=== PATIENT | male | born 1975 | race Caucasian/White ===

== ENCOUNTER 2016-04-05 14:37 | Emergency (ER) | payer OTHER ==
--- NOTE | 2016-04-05 15:41 | ED ---
General Adult HPI - General Chief complaint: Skin/Abscess/Foreign Body Stated complaint: Lump under Ear Time Seen by Provider: 04/05/16 15:32 Source: patient, RN notes reviewed Mode of arrival: ambulatory Limitations: no limitations - History of Present Illness Initial comments: This is a 40-year-old male presents with swelling just below the left ear that started 1 week ago. Patient states he noticed some tenderness behind the left ear one week ago but now has increased swelling and increased pain to this area. Patient denies sore throat, trouble swallowing, headache, fever or chills. Patient does admit that the swelling is causing left ear pain and some pain to the left jaw. Patient states he has a history of "fatty tumors" removed from his back and was concerned that this could be another one. Patient was also concerned that it could have been a lymph node as he had an upper respiratory infection over the last week. Patient has no pain with chewing or eating. Patient denies any complaints of dry mouth. Patient denies any recent shortness breath, chest pain, abdominal pain, nausea/vomiting/ diarrhea, back pain, numbness, tingling, hematuria or visual changes, or any other complaints. - Related Data Previous Rx's Medication Instructions Recorded Amoxicillin/Potassium Clav 1 each PO Q12HR #20 tab 03/17/15 [Augmentin 875-125 Tablet] Hydrocodone/Acetaminophen [Ronald 1 each PO Q6HR PRN #10 tab 03/17/15 5-325] Ibuprofen [Motrin] 600 mg PO Q6HR PRN #40 day 03/17/15 Cyclobenzaprine [Flexeril] 10 mg PO TID PRN #20 tablet 03/24/15 HYDROcodone/APAP 5-325MG [Ronald 5] 1 each PO Q4HR PRN #10 tab 03/24/15 Cephalexin [Keflex] 500 mg PO Q12HR 7 Days 04/05/16 Allergies Allergy/AdvReac Type Severity Reaction Status Date / Time No Known Allergies Allergy Verified 04/05/16 14:45 Review of Systems ROS Statement: Those systems with pertinent positive or pertinent negative responses have been documented in the HPI. ROS Other: All systems not noted in ROS Statement are negative. Past Medical History Past Medical History: No Reported History History of Any Multi-Drug Resistant Organisms: None Reported Additional Past Surgical History / Comment(s): cyst removal Past Psychological History: No Psychological Hx Reported Smoking Status: Current some day smoker Past Alcohol Use History: None Reported Past Drug Use History: Marijuana General Exam - General Exam Comments Initial Comments: General: The patient is awake and alert, in no distress, and does not appear acutely ill. Eye: Pupils are equal, round and reactive to light, extra-ocular movements are intact. No nystagmus. There is normal conjunctiva bilaterally. No signs of icterus. Ears: There is some swelling just below the lobe of the left ear that is tender to palpation and approximately 3 cm in diameter. TMs pink and pearly with intact cone of light bilaterally. Normal external ear canals Nose: Nasal turbinates pink and moist Mouth and throat: There are moist mucous membranes and no oral lesions. Neck: The neck is supple, there is no tenderness or JVD. Cardiovascular: There is a regular rate and rhythm. No murmur, rub or gallop is appreciated. Respiratory: Lungs are clear to auscultation, respirations are non-labored, breath sounds are equal. No wheezes, stridor, rales, or rhonchi. Musculoskeletal: Normal ROM, no tenderness. Strength 5/5. Sensation intact. Radial pulses equal bilaterally 2+. Neurological: A&O x 3. CN II-XII intact, There are no obvious motor or sensory deficits. Coordination appears grossly intact. Speech is normal. Skin: There is some swelling just below the lobe of the left ear approximately 1.5 cm in diameter, there is no erythema, warmth or sign of drainage. Skin is warm and dry and no rashes or lesions are noted. Psychiatric: Cooperative, appropriate mood & affect, normal judgment. Limitations: no limitations Course Vital Signs 04/05/16 14:43 Temperature 97.5 F L Pulse Rate 78 Respiratory 20 Rate Blood Pressure 127/72 O2 Sat by Pulse 98 Oximetry Medical Decision Making - Medical Decision Making This is a 32-year-old male presents with swelling just below the left ear times one week. On physical exam patient is afebrile in the EC. There is some swelling just below the lobe of the left ear that is tender to palpation and approximately 1.5 cm in diameter. There is no erythema, warmth or signs of drainage. TMs pink and pearly with intact cone of light bilaterally. Normal external ear canals. This does not appear to be an abscess. Discussed that patient would put on a course of antibiotics for lymphadenitis. Discussed Tylenol and Motrin and warm compresses for pain. I discussed the possibility for parotid gland stone with the patient the patient has no pain with eating or complaints of dry mouth. I discussed that patient can try hard candies as well to see if this improves symptoms. Patient has no history of parotid gland stones. I discussed return parameters. Discussed that patient should follow up with PCP in one to 2 days or return to the EC for any worsening symptoms or for any further concerns. Patient was receptive to this plan and patient will be discharged home. I discussed this case with attending physician Dr. Nielsen who agrees the plan as stated above. Disposition Clinical Impression: Lymphadenitis Disposition: HOME SELF-CARE Condition: Good Instructions: Adenitis (ED) Additional Instructions: Please finish entire course of antibiotics. Please use warm compresses to the area. Tylenol/Motrin for the pain. Please follow-up with family doctor in the next 2 days of symptoms have not improved. Please return to emergency room if the symptoms increase or worsen or for any other concerns. Prescriptions: Cephalexin [Keflex] 500 mg PO Q12HR 7 Days Referrals: Larry Grossman MD [Primary Care Provider] - 1-2 days Time of Disposition: 16:04
[2016-04-05 16:14] VITALS: BP 118/84; PULSE 82; RESP 17; TEMP 97.3
== END 2016-04-05 16:13 | disposition home or self-care (01) ==
LOC: EC 14:37
DX: I88.9 Nonspecific lymphadenitis, unspecified (principal); F17.200 Nicotine dependence, unspecified, uncomplicated

== ENCOUNTER → 2017-05-23 | Outpatient (CLI) | payer BC ==
--- NOTE | 2017-05-23 14:55 | XR ---
Left shoulder HISTORY: Chronic shoulder pain 3 views of the left shoulder Bone mineralization, joint spaces and alignment are maintained. Left lung apex as visualized is oriana l. IMPRESSION: Normal left shoulder
== END | disposition home or self-care (01) ==
LOC: RADXRMAIN 13:06
PROVIDERS: ATTEND Family Medicine
DX: M25.512 Pain in left shoulder (principal)

== ENCOUNTER → 2017-08-31 | Outpatient (CLI) | payer BC ==
--- NOTE | 2017-09-05 08:31 | XR ---
EXAMINATION TYPE: XR ankle complete LT DATE OF EXAM: 09/04/2017 COMPARISON: NONE HISTORY: Pain FINDINGS: Three views of the ankle demonstrate the ankle mortise to be intact and symmetric. The joint spaces are preserved. The osseous structures are intact. IMPRESSION: 1. No definite acute fracture or dislocation, if symptoms persist follow-up study in 7 to 10 days wou ld be suggested.
--- NOTE | 2017-09-05 09:17 | XR ---
EXAM TYPE: LUMBAR SPINE X RAY SERIES COMPARISON: NONE HISTORY: Back pain TECHNIQUE: 4 views are submitted. FINDINGS: Alignment is anatomic. The pedicles are intact. The transverse processes are intact. There is no s pondylolysis or spondylolisthesis. Spina bifida occulta lumbosacral junction. Mild facet arthropathy L5-S1. Mild to moderate degenerative disc disease L3-4, L4-5, and L5-S1. IMPRESSION: 1. Multilevel degenerative disc disease. Consider follow-up MRI.
== END | disposition home or self-care (01) ==
LOC: RADXRMAIN 07:55
PROVIDERS: ATTEND Family Medicine
DX: M51.36 Other intervertebral disc degeneration, lumbar region (principal); M25.572 Pain in left ankle and joints of left foot
CPT/HCPCS: 72110

== ENCOUNTER 2021-11-20 13:22 | Emergency (ER) | payer BC ==
[2021-11-20 13:39] VITALS: BP 164/92; PULSE 90; RESP 16; TEMP 98.3
[2021-11-20] MEDS ORDERED: LIDOCAINE 1% INJ 10MG/ML (20 ML MDV) SQ ONE (15:51)
[2021-11-20] MEDS ORDERED: DIPH,PERTUS(ACELL)TETVAC-LF 0.5 ML VIAL IM ONE (15:52)
--- NOTE | 2021-11-20 16:17 | XR ---
EXAMINATION TYPE: XR hand complete RT DATE OF EXAM: 11/20/2021 4:05 PM INDICATION: Patient age:Male; 46 years old; Reason for study: pain, laceration; PHH. COMPARISON: None TECHNIQUE: Frontal, lateral and oblique views of the right hand were obtained. FINDINGS: Normal alignment of the visualized joints. No acute osseous pathology is identified. No e vidence of soft tissue swelling. IMPRESSION: No acute osseous pathology.
--- NOTE | 2021-11-20 17:07 | ED ---
General Adult HPI - General Chief complaint: Wound/Laceration Stated complaint: laceration right hand Time Seen by Provider: 11/20/21 15:15 Source: patient Mode of arrival: ambulatory Limitations: no limitations - History of Present Illness Initial comments: 46-year-old male presents to the emergency department with laceration to his right hand. States he was attempting to seat a tire when the strap came loose and hit him in his right palm. He is right-hand dominant. No use of blood thinners. Continues to have full normal range of motion. Cleansed the wound with peroxide and when he realized the depth of the laceration came into the emergency room for repair. He is unsure of his last tetanus vaccine. No wrist pain. No other alleviating, precipitating or modifying factors - Related Data Previous Rx's Medication Instructions Recorded Amoxicillin/Potassium Clav 1 each PO Q12HR #20 tab 03/17/15 [Augmentin 875-125 Tablet] Hydrocodone/Acetaminophen [[place] 1 each PO Q6HR PRN #10 tab 03/17/15 5-325] Ibuprofen [Motrin] 600 mg PO Q6HR PRN #40 day 03/17/15 Cyclobenzaprine [Flexeril] 10 mg PO TID PRN #20 tablet 03/24/15 HYDROcodone/APAP 5-325MG [[place] 5] 1 each PO Q4HR PRN #10 tab 03/24/15 Cephalexin [Keflex] 500 mg PO Q12HR 7 Days cap 04/05/16 Allergies Allergy/AdvReac Type Severity Reaction Status Date / Time No Known Allergies Allergy Verified 11/20/21 13:38 Review of Systems ROS Statement: Those systems with pertinent positive or pertinent negative responses have been documented in the HPI. ROS Other: All systems not noted in ROS Statement are negative. Past Medical History Past Medical History: No Reported History History of Any Multi-Drug Resistant Organisms: None Reported Additional Past Surgical History / Comment(s): cyst removal Past Psychological History: No Psychological Hx Reported Smoking Status: Never smoker Past Alcohol Use History: None Reported Past Drug Use History: Marijuana General Exam Limitations: no limitations General appearance: alert, in no apparent distress Extremities exam: Present: other (3 x 1 cm laceration to the right medial home. Some exposed subcutaneous fat. Mild oozing. No tendon injury. No vascular injury. No underlying bony fracture. No retained foreign bodies. 2+ radial and ulnar pulses. Normal cap refill) Course Vital Signs 11/20/21 13:38 Temperature 98.3 F Pulse Rate 90 Respiratory 16 Rate Blood Pressure 164/92 O2 Sat by Pulse 98 Oximetry Procedures - Laceration Laceration #1 Consent Obtained: verbal consent Indication: laceration Site: hand Size (cm): 3 Description: linear Depth: simple, single layer Anesthetic Used: lidocaine 1% Anesthesia Technique: local infiltration Amount (mls): 8 Pre-repair: wound explored, irrigated extensively, deep structures intact, wound margins revised Type of Sutures: nylon Size of Sutures: 4-0 Number of Sutures: 5 Technique: simple, interrupted Patient Tolerated Procedure: well, no complications Medical Decision Making - Medical Decision Making Upon arrival patient was placed into room 21. Thorough history and physical exam was performed. Patient does go for x-ray which does not demonstrate any underlying fractures. Tetanus is updated. Patient's wound was cleansed and then repaired using 5, 4-0 nylon interrupted sutures. There was good approximation of the tissue. Patient remained neurovascularly intact. He'll be discharged home and instructed to have his sutures removed in 7-10 days. Should be reevaluated by his primary care doctor in 2-4. May return here for suture removal. Return should he have any new or worsening symptoms including increasing redness, pustular drainage. Patient was agreeable to this and he was discharged home in stable condition Disposition Clinical Impression: Hand laceration, Crush injury Disposition: HOME SELF-CARE Condition: Stable Instructions (If sedation given, give patient instructions): Diphtheria/Pertussis/Tetanus Vaccine (By injection), Laceration (ED) Additional Instructions: Your stitches need to be removed in 7-10 days. Return should you have any redness or pustular drainage. Alternate taking Motrin and Tylenol for pain. Is patient prescribed a controlled substance at d/c from ED?: No Referrals: Larry Grossman MD [Primary Care Provider] - 1-2 days Time of Disposition: 17:07
== END 2021-11-20 17:19 | disposition home or self-care (01) ==
LOC: EC 13:22
DX: S61.411A Laceration without foreign body of right hand, initial encounter (principal); Z23 Encounter for immunization; W22.8XXA Striking against or struck by other objects, initial encounter
CPT/HCPCS: 73130; 90715; 90471; 12002; 99283; J2001

== ENCOUNTER → 2023-12-12 | Outpatient (CLI) | payer BC ==
--- NOTE | 2023-12-13 19:21 | MR ---
EXAMINATION TYPE: MR lumbar spine wo/w con DATE OF EXAM: 12/12/2023 7:39 PM COMPARISON: None. CLINICAL INDICATION: Male, 48 years old with history of M51.36 LUMBAR DISC DEGENERATION, low back hector n that radiates down both hips and legs, more on left side TECHNIQUE: Multiplanar, multisequence images of the lumbar spine were acquired. IV Contrast: 8 mL Gadobutrol (None, if empty) FINDINGS: Cord ends at the L1-L2 level. L5-S1: Broad based disc bulge is present with anterior thecal sac contact. No thecal sac compression or nerve root displacement is evident. No spinal canal stenosis is present, neural foramen are patent . L4-L5: There is narrowing of the disc height at this level. No spinal canal stenosis or neural forami nal stenosis is evident. Mild anterior thecal sac contact is present from disc bulging. Subligamentou s disc extension posterior to the L5 level may be present. Ligamentum flavum laxity is present. Keyonna elate for right L5 radicular symptoms. L3-L4: There is disc space narrowing. Some right paracentral subligamentous disc herniation is eviden t with disc posterior to the L4 vertebral body. This has mild anterior thecal sac compression. Correl ate for radicular symptoms. L2-L3: No focal disc herniation or significant disc bulge. No spinal canal stenosis. Neural foramen are patent. L1-L2: No focal disc herniation or significant disc bulge. No spinal canal stenosis. Neural foramen are patent. T12-L1: No focal disc herniation or significant disc bulge. No spinal canal stenosis. Neural forame n are patent. Study is performed with intravenous contrast. No suspicious enhancement is evident. IMPRESSION: 1. Subligamentous disc herniations at L5-S1, L4-5, L3-4. Correlate with right L5 radicular symptoms 2. Degenerative disc changes L3-4 through L5-S1 [facility], , 12/13/2023 7:18 PM
== END | disposition home or self-care (01) ==
LOC: RADMRIMAIN 18:12
PROVIDERS: ATTEND Family Medicine
DX: M51.360 Other intervertebral disc degeneration, lumbar region with discogenic back pain only (principal); M47.26 Other spondylosis with radiculopathy, lumbar region; M47.27 Other spondylosis with radiculopathy, lumbosacral region; M51.16 Intervertebral disc disorders with radiculopathy, lumbar region; M51.17 Intervertebral disc disorders with radiculopathy, lumbosacral region
CPT/HCPCS: 72158

== ENCOUNTER → 2023-12-25 | Outpatient (CLI) | payer BC ==
[2023-12-25 09:14] VITALS: BP 152/83; PULSE 66; RESP 16
--- NOTE | 2023-12-25 15:05 | P.PAINPG ---
PQRS Measure Charge Sheet Comment: HISTORY OF PRESENT ILLNESS: A 48 yr old male as a referral from Dr Grossman presents today w severe and chronic LBP > 3 mo secondary to radiculopathy, spondylosis and facet arthropathy without myelopathy for evaluation. Pt states pain level is provoked at 9 /10 in intensity, intermittent, localized in the lumbar spine, predominantly axial, achy in character w occasional shooting pain towards the BL ankles. Pain is provoked by ice, walking/ standing for periods > 20 min. Pain is alleviated by chiropractic treatments semi monthly which ended in 2021, physician guided home exercises every other day since 2021, heat, medications (Marinette, Neurontin, Zanaflex, Ibu), THC products, repositioning and rest . 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 PMH: OA, PSH: Lipoma Resections, RUE Sutures s/p dog bite SH: Never smoker, Occ ETOH use, Cannabis use FH: Non contributory All: See list Meds: See list REVIEW OF ORGAN SYSTEMS: CONSTITUTIONAL: No fevers or chills. No recent weight loss. NEUROLOGICAL: + numbness and tingling along the distal extremities. No seizure disorders or headaches. MUSCULOSKELETAL: + pain PSYCHIATRIC: Denies current depression or suicidal thoughts. Physical Examinations : Constitutional : Cooperative , not in acute distress . Neurologic : Cranial nerve II to XII intact. No focal neurological deficits. Psychiatric : alert & oriented x 3. Matching mood & appropriate affect. Judgment & insight intact. Musculoskeletal : Cervical Spine Motor strength in the deltoid and biceps: Normal right side. Normal Left side Motor strength biceps and the wrist extensors: Normal right side . Normal left side Motor strength in the triceps muscle: Normal right side. Normal left side Deep tendon reflexes: Normal at the biceps. Normal at Brachioradialis. Normal at triceps Vertebral body tenderness to deep palpation over Cervical facet loading test: positive bilaterally Spurling test: positive bilaterally Neck distraction test: positive bilaterally Jaylon sign: positive bilaterally Lumbar spine Motor strength lower extremities ,thigh and legs 5/5 Right side , 5/5 Left side Deep tendon reflexes : Normal Knee Jerk. Normal Ankle Jerk Vertebral body tenderness over L5 Rosales Test positive BL L5-S1 Lumbar facet Loading Test: positive Right / positive Left Range of motion of the lumbar spine Flexion 30 degrees, extension 10 degrees Straight Leg Raise test: Left/ Right positive at degrees Richard test: positive right / positive left. Severe tenderness over the Sacroiliac joint on the Right / Left sides Gaenslen test: positive bilaterally Seated flexion test: positive bilaterally. Sacral spine : Severe tenderness over the Sacroiliac joint: right side / left side Range of motion: Flexion of the lumbar spine <60 degrees Range of motion: Extension of the lumbar spine <20 degrees Gaenslen's Test positive Richard test: positive right side / left side Thigh Thrust Test Sacral Thrust Test Imaging: MRI non contrast lumbar spine from 02/10/23 reviewed Assessment/ Plan : L3-L4 / L5-S1 radiculopathy Recommendation of MARITZA L5-S1 #1. Risks, benefits of procedure discussed and patient verbalized understanding. Admits to anti- coagulant use or medical history of diabetes. Protocol for discontinuation/ continuation of medications jamia procedure discussed. All questions answered. I have spent greater than 30 minutes on patient care today. Dr Cuevas was available by phone for the evaluation of this patient. The time was used to review the medical records including relevant urine studies and Prescription history (MAPs), review of the available imaging, evaluation and examination of the patient, coordination of care with the medical staff and if applicable referring physicians, as well as creation of the medical record PQRS Narrative: Smoking Status Current some day smoker Home Medications: Ambulatory Orders Hydrocodone/Acetaminophen [[place] 5-325] 1 each PO Q6HR PRN #10 tab 03/17/15 Ibuprofen [Motrin] 600 mg PO Q6HR PRN #40 day 03/17/15 Cyclobenzaprine [Flexeril] 10 mg PO TID PRN #20 tablet 03/24/15 HYDROcodone/APAP 5-325MG [[place] 5] 1 each PO Q4HR PRN #10 tab 03/24/15 Gabapentin 800 mg PO QID 12/25/23 Testosterone Cypionate [Depo-Testosterone] 200 mg IM 12/25/23 tiZANidine HCL [Zanaflex] 4 mg PO QID 12/25/23 Controlled Substance Measures - Controlled Substance Measures Is patient prescribed a controlled substance at discharge?: No
== END ==
LOC: PNWHC3 08:38
PROVIDERS: ATTEND Specialist
DX: M51.17 Intervertebral disc disorders with radiculopathy, lumbosacral region (principal); F17.200 Nicotine dependence, unspecified, uncomplicated
CPT/HCPCS: 99211

== ENCOUNTER 2024-01-18 09:50 | Day surgery (SDC) | payer BC ==
[~2024-01-18 09:50] MED LIST: LACTATED RINGERS 1,000 ML IV SCH
[2024-01-18 10:39] VITALS: RESP 16; TEMP 97
[2024-01-18] MEDS ORDERED: methylPREDNISolone ACETATE 80 MG/ML 1 ML VIAL ONE (10:58)
[2024-01-18] MEDS ORDERED: IOPAMIDOL M200 10 ML VIAL ONE (10:58)
--- NOTE | 2024-01-18 11:03 | P.PCN ---
Date of Procedure: 01/18/24 Procedure(s) Performed: PREOPERATIVE DIAGNOSIS: 1- Lumbar Degenerative Disc Diseases 2-lumbar radiculopathy POSTOPERATIVE DIAGNOSIS: 1-lumbar degenerative disc disease. 2-lumbar radiculopathy PROCEDURE 1. Lumbar epidural steroid injection under fluoroscopic guidance at the L5-S1 level. (Fluoroscopy imaging was available in radiology department) 2. Lumbar epidurogram. ANESTHESIA: Lidocaine 1% 3 and then only. EBL: Minimal PROCEDURE INDICATION: The patient with low back pain and radiculitis symptoms unresponsive to conservative treatment. Fluoroscopy was used to optimize visualization of the needle placement and to maximize safety. PROCEDURE DESCRIPTION / TECHNIQUE: The patient was seen and identified in the preoperative area. Risks, benefits, complications including but not limited to infections ,bleeding ,allergic reaction to the medications ,nerve damage and not complete pain releife , and alternatives were discussed with the patient. The patient agreed to proceed with the procedure and signed the consent, and vital signs were stable. Patient was taken to the OR and time out was completed. The patient was placed in the prone position on procedure table and a pillow was placed under the abdomen to reduce lumbar lordosis. The lumbosacral area was prepped and draped in the usual sterile fashion.ere closely monitored during the procedure. Vital signs was monitered during the entire procedure. Using anterior-posterior fluoroscopy, the L5-S1 interlaminar space was identified and the skin over this site was marked and then infiltrated with 1% lidocaine subcutaneously. Subsequently, a 20-gauge Tuohy epidural needle was inserted and advanced toward the epidural (Right paramedial ) space using the ``Loss of resistance technique and guided by AP and lateral fluoroscopy. The correct needle position in the epidural space was verified with the injection of 2 mL of the water soluble contrast dye Isovue 200 contrast and observing an excellent epidurogram with the epidural spread of the dye, after negative aspiration for blood and CSF and in the absence of paresthesias. Again after negative aspiration, a 6 ml mixture containing 80 mg of Depo-medrol ( Preservetive Free ), and 2 ml of preservative free Normal Saline, and 2 ml of preservative free lidocaine 1% solution was injected and a washout of epidurogram was seen. Needle was withdrawn intact, skin was cleansed, and bandages were applied. COMPLICATIONS: None DISPOSITION / PLANS: The patient was placed in a supine position and transferred to the recovery area in a stable condition for observation. There was no evidence of lower extremity motor or sensory deficit after the procedure. Patient was discharged from the recovery room after meeting discharge criteria. Home discharge instructions were given to the patient by the staff. The patient was reexamined prior to discharge. The patient will schedule a follow up in the clinic in 2-4 weeks.
[2024-01-18 11:34] VITALS: BP 127/79; PULSE 72
--- NOTE | 2024-01-18 11:48 | FL ---
EXAMINATION TYPE: FL guided pain mgmt statistic DATE OF EXAM: 01/18/2024 11:08 AM COMPARISON: Pre Operative Images if available both CT/MRI or plain film CLINICAL INDICATION: Male, 48 years old with history of LESI; TECHNIQUE: FL guided pain mgmt statistic, multiple fluoroscopic images provided for procedure. Total fluoroscopy time: 2.0 seconds Total submitted images to PACS: 1 DAP: [id number] mGym2 Gycm2 uGym2 cGycm2 or equivalent. FINDINGS: Fluoroscopic images during injection for pain management demonstrate multilevel degeneration changes throughout the spine. No evidence for fracture. No acute process identified. IMPRESSION: 1. No evidence for intraoperative complication. 2. Please see the operative/procedural note for further details. [facility], , 01/18/2024 11:45 AM
== END 2024-01-18 11:42 | disposition home or self-care (01) ==
LOC: ORPAIN 09:50
PROVIDERS: ATTEND Specialist
DX: M51.16 Intervertebral disc disorders with radiculopathy, lumbar region (principal)
CPT/HCPCS: 62323; Q9966; J1010